=== PATIENT | male | born 1960 | race Caucasian/White ===

== ENCOUNTER → 2016-06-13 | Outpatient (CLI) | payer BC | END | disposition home or self-care (01) | LOC: MW.CHIM 07:44 | PROVIDERS: ATTEND Internal Medicine | DX: I10 Essential (primary) hypertension (principal); R73.03 Prediabetes | CPT/HCPCS: 36415; 80053; 80061; 83036; 85025 ==

== ENCOUNTER 2021-10-20 10:23 | Day surgery (SDC) | payer BC ==
[~2021-10-20 10:23] MED LIST: Lactated Ringers 1,000 ML IV SCH; Sodium Chloride 0.9% 10 ML Syringe FLUSH PRN; Sodium Chloride 0.9% 2.5 ML Syringe FLUSH PRN; Sodium Chloride 0.9% 20 ML SDV IV PRN
[2021-10-20] MEDS ORDERED: Propofol 200 MG/20 ML SDV ONE (12:10)
[2021-10-20] MEDS ORDERED: fentaNYL 100 MCG/2 ML SDV ONE (12:10)
[2021-10-20 13:10] VITALS: BP 100/68; PULSE 63
== END 2021-10-20 13:11 | disposition home or self-care (01) ==
LOC: MW.SDS 10:23
PROVIDERS: ATTEND Surgery
DX: Z12.11 Encounter for screening for malignant neoplasm of colon (principal); D12.0 Benign neoplasm of cecum; I10 Essential (primary) hypertension; E78.1 Pure hyperglyceridemia; R73.09 Other abnormal glucose; E66.9 Obesity, unspecified; G47.30 Sleep apnea, unspecified; F17.200 Nicotine dependence, unspecified, uncomplicated; Z79.82 Long term (current) use of aspirin; Z80.0 Family history of malignant neoplasm of digestive organs; Z88.0 Allergy status to penicillin; Z79.899 Other long term (current) drug therapy; Z68.32 Body mass index [BMI] 32.0-32.9, adult; Z98.890 Other specified postprocedural states
CPT/HCPCS: 45380; 82947; J2704; J3010; J7120; 00812